=== PATIENT | male | born 1965 | race Caucasian/White ===

== ENCOUNTER 2020-11-06 04:19 | Inpatient (IN) | payer OTHER ==
[2020-11-06] MEDS ORDERED: ACETAMINOPHEN 1000 MG/100 ML VIAL (NON FORMULARY) IVPB ONE (06:02)
[2020-11-06 06:23] LABS: BASO % 0.9 % (0-2.0); EOS % 0.5 % (0-4.5); HEMATOCRIT 42.8 % (35.4-49); HEMOGLOBIN 14.7 GM/dL (11.7-16.9); LYMPH % 26.8 % (8-40); MCH 32.9 pg (25.7-33.7); MCHC 34.3 g/dl (32.0-35.9); MEAN CELL VOLUME 95.8 fl (80-96); MEAN PLT VOLUME 8.8 fl (7.5-11.1); MONO % 7.2 % (3.8-10.2); NEUT % 64.6 % (42.8-82.8); PLATELET COUNT 263 10^3/uL (134-434); RBC 4.47 M/mm3 (4.00-5.60); RDW 14.3 % (11.9-15.9)
[2020-11-06 06:26] LABS: INR 0.87 (0.83-1.09); PROTHROMBIN TIME (PATIENT) 10.6 SEC (9.7-13.0)
[2020-11-06 06:29] LABS: ACTIVATED PTT 26.4 SECONDS (25.2-36.5)
[2020-11-06] MEDS ORDERED: ACETAMINOPHEN INJECTION 100 ML IVPB ONE (06:29)
[2020-11-06] MEDS ORDERED: DIPHTH,PERTUSS(ACELL),TET 0.5 ML DISP.SYRIN IM ONE ×3 (06:47→10:41)
[2020-11-06 08:09] LABS: CALCIUM 8.8 mg/dL (8.5-10.1)
[2020-11-06 08:10] LABS: ALBUMIN 3.6 g/dl (3.4-5.0); BLOOD UREA NITROGEN 14.8 mg/dL (7-18); MAGNESIUM 2.4 mg/dL (1.8-2.4)
[2020-11-06 08:13] LABS: PHOSPHOROUS 4.7 mg/dL (2.5-4.9)
[2020-11-06 08:18] LABS: N-TERMINAL BNP 1577.2 pg/ml (5-125)
[2020-11-06] MEDS ORDERED: PT OWN MED DRAWER 7, Y5N ONE ×2 (08:39→18:40)
[2020-11-06 09:49] LABS: BILIRUBIN,TOTAL 0.5 mg/dL (0.2-1); TOT PROT 7.3 g/dl (6.4-8.2)
[2020-11-06] MEDS ORDERED: DEXTROSE 5%-0.45% SALINE 1,000 ML IV SCH (10:15)
[2020-11-06] MEDS ORDERED: PANTOPRAZOLE 20 MG TABLET PO ONE ×2 (11:24→11:35)
[2020-11-06] MEDS: PANTOPRAZOLE 40 MG TABLET PO SCH (12:02)
[2020-11-06] MEDS ORDERED: ACETAMINOPHEN 325 MG TABLET (FP) PO PRN (13:01)
[2020-11-06] MEDS ORDERED: IBUPROFEN 600 MG TABLET (FP) PO ONE ×2 (13:12→13:22)
[2020-11-06 13:57] LABS: BASO % 0.9 % (0-2.0); EOS % 0.2 % (0-4.5); HEMATOCRIT 43.4 % (35.4-49); LYMPH % 18.1 % (8-40); MCH 32.7 pg (25.7-33.7); MCHC 34.7 g/dl (32.0-35.9); MEAN CELL VOLUME 94.1 fl (80-96); MEAN PLT VOLUME 8.5 fl (7.5-11.1); NEUT % 71.8 % (42.8-82.8); PLATELET COUNT 248 10^3/uL (134-434); RBC 4.61 M/mm3 (4.00-5.60); RDW 14.1 % (11.9-15.9); WHITE BLOOD COUNT 10.4 K/mm3 (4.0-10.0)
[2020-11-06 14:14] LABS: CALCIUM 9.3 mg/dL (8.5-10.1)
[2020-11-06 14:15] LABS: BLOOD UREA NITROGEN 13.8 mg/dL (7-18)
[2020-11-06 14:18] LABS: CREATININE 0.9 mg/dL (0.55-1.3)
[2020-11-06] MEDS: MULTIVITAMINS THER W-MINERALS COMBO TABLET (FP) PO SCH (18:23)
[2020-11-06 22:33] VITALS: BMI 28.1
[2020-11-06] MEDS: CODEINE SO4 30 MG TABLET PO PRN (23:46)
[2020-11-07] MEDS: CODEINE SO4 30 MG TABLET PO PRN (06:21)
[2020-11-07 07:57] LABS: BASO % 0.5 % (0-2.0); EOS % 1.2 % (0-4.5); HEMATOCRIT 41.3 % (35.4-49); HEMOGLOBIN 14.3 GM/dL (11.7-16.9); LYMPH % 20.2 % (8-40); MCH 32.7 pg (25.7-33.7); MCHC 34.7 g/dl (32.0-35.9); MEAN CELL VOLUME 94.4 fl (80-96); MEAN PLT VOLUME 8.6 fl (7.5-11.1); MONO % 10.2 % (3.8-10.2); NEUT % 67.9 % (42.8-82.8); PLATELET COUNT 215 10^3/uL (134-434); RBC 4.37 M/mm3 (4.00-5.60); RDW 14.1 % (11.9-15.9); WHITE BLOOD COUNT 8.3 K/mm3 (4.0-10.0)
[2020-11-07 08:17] LABS: ALBUMIN 3.5 g/dl (3.4-5.0); BLOOD UREA NITROGEN 12.7 mg/dL (7-18); CALCIUM 8.4 mg/dL (8.5-10.1)
[2020-11-07 08:19] LABS: BILIRUBIN,TOTAL 0.8 mg/dL (0.2-1); CREATININE 0.9 mg/dL (0.55-1.3)
[2020-11-07 08:22] LABS: TOT PROT 6.6 g/dl (6.4-8.2)
[2020-11-07] MEDS: MULTIVITAMINS THER W-MINERALS COMBO TABLET (FP) PO SCH (09:37)
[2020-11-07] MEDS: PANTOPRAZOLE 40 MG TABLET PO SCH (09:37)
[2020-11-07] MEDS ORDERED: POTASSIUM CHLORIDE TABS 20 MEQ TABLET.ER (FP) PO ONE (09:45)
[2020-11-07] MEDS: oxyCODONE HCL 5 MG TABLET PO PRN ×2 (11:54→22:20)
[2020-11-07] MEDS: CYANOCOBALAMIN 1,000 MCG TABLET (FP) PO SCH (11:55)
[2020-11-07] MEDS: DEXTROSE 5%-0.45% SALINE 1,000 ML IV SCH (11:56)
[2020-11-07] MEDS: LOSARTAN POTASSIUM 50 MG TABLET PO SCH (11:56)
[2020-11-08] MEDS: oxyCODONE HCL 5 MG TABLET PO PRN ×3 (03:37→17:25)
[2020-11-08] MEDS: DEXTROSE 5%-0.45% SALINE 1,000 ML IV SCH ×2 (05:30→17:27)
[2020-11-08] MEDS: CYANOCOBALAMIN 1,000 MCG TABLET (FP) PO SCH (10:03)
[2020-11-08] MEDS: MULTIVITAMINS THER W-MINERALS COMBO TABLET (FP) PO SCH (10:03)
[2020-11-08] MEDS: LOSARTAN POTASSIUM 50 MG TABLET PO SCH (10:03)
[2020-11-08] MEDS: PANTOPRAZOLE 40 MG TABLET PO SCH (10:03)
[2020-11-09] MEDS: oxyCODONE HCL 5 MG TABLET PO PRN ×2 (00:32→10:43)
[2020-11-09 08:17] LABS: BASO % 0.6 % (0-2.0); EOS % 1.4 % (0-4.5); HEMOGLOBIN 14.8 GM/dL (11.7-16.9); LYMPH % 21.3 % (8-40); MCH 32.8 pg (25.7-33.7); MCHC 34.5 g/dl (32.0-35.9); MEAN CELL VOLUME 94.9 fl (80-96); MONO % 11.5 % (3.8-10.2); NEUT % 65.2 % (42.8-82.8); PLATELET COUNT 222 10^3/uL (134-434); RBC 4.52 M/mm3 (4.00-5.60); RDW 13.9 % (11.9-15.9); WHITE BLOOD COUNT 7.9 K/mm3 (4.0-10.0)
[2020-11-09 08:22] LABS: CALCIUM 8.6 mg/dL (8.5-10.1)
[2020-11-09 08:23] LABS: BLOOD UREA NITROGEN 10.7 mg/dL (7-18)
[2020-11-09 08:26] LABS: CREATININE 0.8 mg/dL (0.55-1.3)
[2020-11-09 09:13] VITALS: BP 139/88; PULSE 92; TEMP 98.6
[2020-11-09] MEDS: DEXTROSE 5%-0.45% SALINE 1,000 ML IV SCH (10:40)
[2020-11-09] MEDS: CYANOCOBALAMIN 1,000 MCG TABLET (FP) PO SCH (10:40)
[2020-11-09] MEDS: PANTOPRAZOLE 40 MG TABLET PO SCH (10:40)
[2020-11-09] MEDS: MULTIVITAMINS THER W-MINERALS COMBO TABLET (FP) PO SCH (10:40)
[2020-11-09] MEDS: LOSARTAN POTASSIUM 50 MG TABLET PO SCH (10:40)
== END 2020-11-09 15:31 | disposition home or self-care (01) | DRG 312 ==
LOC: JER 04:19 → JERBED 10:15 → J4W 20:16
PROVIDERS: ADMIT Internal Medicine; ATTEND Internal Medicine
PROC: 0HQ1XZZ Repair Face Skin, External Approach (ICD-10-PCS; principal; 2020-11-06)
DX: R55 Syncope and collapse (principal); S06.0X9A Concussion with loss of consciousness of unspecified duration, initial encounter; M62.82 Rhabdomyolysis; N17.9 Acute kidney failure, unspecified; S01.81XA Laceration without foreign body of other part of head, initial encounter; W17.89XA Other fall from one level to another, initial encounter; Y93.89 Activity, other specified; Y92.000 Kitchen of unspecified non-institutional (private) residence as the place of occurrence of the external cause; Y99.8 Other external cause status; E87.5 Hyperkalemia; R94.31 Abnormal electrocardiogram [ECG] [EKG]; K76.0 Fatty (change of) liver, not elsewhere classified; S20.219A Contusion of unspecified front wall of thorax, initial encounter; R79.89 Other specified abnormal findings of blood chemistry; R16.0 Hepatomegaly, not elsewhere classified; F10.10 Alcohol abuse, uncomplicated; R60.0 Localized edema
CPT/HCPCS: 36415; 70450-TC; 70486-TC; 71045-TC-FY; 71275-TC; 72125-TC; 74174-TC; 80048; 80053; 82550; 82553; 82607; 83735; 83880; 84100; 84484; 85025; 85610; 85730; 90715; 93005; 93010; 93306-TC; 93880-TC; 94010; 97116-GP; 97161-GP; 99285-25; C9803; J0131; Q9967; U0003; U0005

== ENCOUNTER 2022-10-09 07:11 | Inpatient (IN) | payer OTHER ==
[2022-10-09] MEDS ORDERED: NITROGLYCERIN SUBLINGUAL 1/150 0.4 MG TAB SL ONE (07:52)
[2022-10-09] MEDS ORDERED: NITROGLYCERIN SUBLINGUAL 1/150 0.4 MG TAB ONE (07:57)
[2022-10-09 08:07] LABS: BASO % 1.2 % (0-2.0); EOS % 0.9 % (0-4.5); HEMOGLOBIN 14.2 GM/dL (11.7-16.9); MCH 32.1 pg (25.7-33.7); MCHC 34.5 g/dl (32.0-35.9); MEAN CELL VOLUME 92.9 fl (80-96); MEAN PLT VOLUME 8.4 fl (7.5-11.1); MONO % 7.4 % (3.8-10.2); NEUT % 70.5 % (42.8-82.8); PLATELET COUNT 243 10^3/uL (134-434); RBC 4.41 M/mm3 (4.00-5.60); RDW 14.8 % (11.9-15.9); WHITE BLOOD COUNT 9.4 K/mm3 (4.0-10.0)
[2022-10-09 08:10] LABS: INR 1.1 (0.83-1.09); PROTHROMBIN TIME (PATIENT) 12.7 SEC (9.7-13.0)
[2022-10-09 08:12] LABS: ACTIVATED PTT 31.2 SECONDS (25.2-36.5); VENOUS BASE EXCESS 0.9 mmol/L (-2-2); VENOUS O2 SATURATION 75.2 % (70-80); VENOUS PCO2 38.9 mmHg (38-52); VENOUS PH 7.428 (7.310-7.410)
[2022-10-09 08:38] LABS: LACTIC ACID 2.3 mmol/L (0.4-2.0)
[2022-10-09 08:39] LABS: POTASSIUM 3.7 mmol/L (3.5-5.1)
[2022-10-09 08:41] LABS: CALCIUM 8.6 mg/dL (8.5-10.1); MAGNESIUM 1.8 mg/dL (1.8-2.4)
[2022-10-09 08:42] LABS: ALBUMIN 3.8 g/dl (3.4-5.0); BLOOD UREA NITROGEN 9.3 mg/dL (7-18)
[2022-10-09 08:44] LABS: PHOSPHOROUS 3.6 mg/dL (2.5-4.9)
[2022-10-09 08:46] LABS: BILIRUBIN,TOTAL 0.5 mg/dL (0.2-1); TOT PROT 7.3 g/dl (6.4-8.2)
[2022-10-09 08:49] LABS: N-TERMINAL BNP 3672.6 pg/ml (5-125)
[2022-10-09] MEDS ORDERED: NITROGLYCERIN 2% OINTMENT - 1GM PACKET TD ONE ×2 (08:55→09:19)
[2022-10-09] MEDS ORDERED: ACETAMINOPHEN 1000 MG/100 ML BAG IVPB ONE (08:55)
[2022-10-09] MEDS ORDERED: ASPIRIN 81 MG CHEWABLE TABLETS PO ONE (08:56)
[2022-10-09] MEDS ORDERED: ACETAMINOPHEN INJECTION 100 ML IVPB ONE (08:56)
[2022-10-09] MEDS ORDERED: ASPIRIN 81 MG CHEWABLE TABLETS ONE (09:14)
[2022-10-09] MEDS ORDERED: LISINOPRIL 10 MG TABLET PO ONE (09:52)
[2022-10-09] MEDS ORDERED: HEPARIN NA (PORCINE) 5,000 UNITS/ML 1ML VIAL IVPUSH ONE (09:54)
[2022-10-09] MEDS ORDERED: HEPARIN NA (PORCINE) 5,000 UNITS/ML 1ML VIAL IVPUSH PRN ×2 (09:56)
[2022-10-09] MEDS ORDERED: HEPARIN INFUSION - 25,000 UNITS/500 ML INFUS.BAG IVPB SCH (10:00)
[2022-10-09] MEDS ORDERED: HEPARIN INFUSION - 25,000 UNITS/500 ML INFUS.BAG IVPB ONE (10:10)
[2022-10-09] MEDS ORDERED: LISINOPRIL 10 MG TABLET ONE (10:10)
[2022-10-09] MEDS ORDERED: METOCLOPRAMIDE HCL INJECTION 10 MG/2 ML VIAL ONE (10:29)
[2022-10-09 12:15] LABS: URINE APPEARANCE CLEAR; URINE BILIRUBIN NEGATIVE (NEGATIVE); URINE COLOR YELLOW; URINE GLUCOSE (UA) NEGATIVE (NEGATIVE); URINE KETONE NEGATIVE (NEGATIVE); URINE LEUK ESTERASE NEGATIVE (NEGATIVE); URINE NITRITE NEGATIVE (NEGATIVE); URINE PROTEIN NEGATIVE (NEGATIVE); URINE UROBILINOGEN 0.2 mg/dL (0.2-1.0)
[2022-10-09] MEDS ORDERED: MAGNESIUM SULF 50% (8.12 MEQ/2 ML-1 GM VIAL) IVPB ONE (14:19)
[2022-10-09] MEDS ORDERED: FUROSEMIDE 40 MG/4 ML INJECTABLE VIAL IVPUSH ONE (14:22)
[2022-10-09] MEDS ORDERED: MAGNESIUM 1GM/D5W - 1 GM/100 ML IVPB IVPB ONE (14:24)
[2022-10-09] MEDS ORDERED: NITROGLYCERIN SUBLINGUAL 1/150 0.4 MG TAB SL PRN (14:26)
[2022-10-09] MEDS ORDERED: FUROSEMIDE 40 MG/4 ML INJECTABLE VIAL ONE (14:28)
[2022-10-09] MEDS ORDERED: ASPIRIN COATED 81 MG TABLET.EC PO SCH (14:30)
[2022-10-09 16:31] LABS: INR 1.1 (0.83-1.09); PROTHROMBIN TIME (PATIENT) 12.7 SEC (9.7-13.0)
[2022-10-09 16:34] LABS: ACTIVATED PTT 42.4 SECONDS (25.2-36.5)
[2022-10-09] MEDS ORDERED: HEPARIN NA (PORCINE) 5,000 UNITS/ML 1ML VIAL ONE (16:48)
[2022-10-09] MEDS ORDERED: ATORVASTATIN CA 80 MG TABLET (FP) PO ONE (22:27)
[2022-10-09] MEDS: HEPARIN NA (PORCINE) 5,000 UNITS/ML 1ML VIAL SQ SCH (22:53)
[2022-10-09 23:14] VITALS: BMI 27.3
[2022-10-09] MEDS: METOPROLOL TARTRATE 25 MG TABLET (FP) PO SCH (23:27)
[2022-10-10] MEDS ORDERED: traZODone HCL 50 MG TABLET (FP) PO ONE (01:32)
[2022-10-10] MEDS: HEPARIN NA (PORCINE) 5,000 UNITS/ML 1ML VIAL SQ SCH ×3 (05:26→21:17)
[2022-10-10 08:22] LABS: BASO % 1.2 % (0-2.0); HEMATOCRIT 39.7 % (35.4-49); HEMOGLOBIN 13.5 GM/dL (11.7-16.9); LYMPH % 30.1 % (8-40); MCH 32.2 pg (25.7-33.7); MEAN CELL VOLUME 94.6 fl (80-96); MONO % 8.6 % (3.8-10.2); NEUT % 58.1 % (42.8-82.8); PLATELET COUNT 221 10^3/uL (134-434); RDW 14.8 % (11.9-15.9); WHITE BLOOD COUNT 5.8 K/mm3 (4.0-10.0)
[2022-10-10 08:32] LABS: CALCIUM 8.8 mg/dL (8.5-10.1)
[2022-10-10 08:33] LABS: ALBUMIN 3.7 g/dl (3.4-5.0)
[2022-10-10 08:35] LABS: CREATININE 0.8 mg/dL (0.55-1.3)
[2022-10-10 08:37] LABS: BILIRUBIN,TOTAL 1.2 mg/dL (0.2-1)
[2022-10-10 08:41] LABS: N-TERMINAL BNP 1158.7 pg/ml (5-125)
[2022-10-10] MEDS: SERTRALINE HCL 50 MG TABLET (FP) PO SCH (09:09)
[2022-10-10] MEDS: METOPROLOL TARTRATE 25 MG TABLET (FP) PO SCH ×2 (09:09→21:16)
[2022-10-10] MEDS: ASPIRIN COATED 81 MG TABLET.EC PO SCH (14:40)
[2022-10-10] MEDS: ATORVASTATIN CA 80 MG TABLET (FP) PO SCH (21:16)
[2022-10-10] MEDS: traZODone HCL 50 MG TABLET (FP) PO SCH (21:16)
[2022-10-11] MEDS: HEPARIN NA (PORCINE) 5,000 UNITS/ML 1ML VIAL SQ SCH ×3 (05:57→21:52)
[2022-10-11] MEDS: METOPROLOL TARTRATE 25 MG TABLET (FP) PO SCH ×2 (09:14→21:53)
[2022-10-11] MEDS: SERTRALINE HCL 50 MG TABLET (FP) PO SCH (09:14)
[2022-10-11] MEDS: ASPIRIN COATED 81 MG TABLET.EC PO SCH (09:14)
[2022-10-11] MEDS ORDERED: CLOPIDOGREL BISULFATE 75 MG TABLET (FP) PO ONE (14:10)
[2022-10-11] MEDS: SACUBITRIL/VALSARTAN 24 MG-26 MG TABLET PO SCH ×2 (14:25→21:52)
[2022-10-11 15:02] LABS: POTASSIUM 4.4 mmol/L (3.5-5.1)
[2022-10-11 15:05] LABS: CALCIUM 8.8 mg/dL (8.5-10.1)
[2022-10-11 15:06] LABS: ALBUMIN 3.8 g/dl (3.4-5.0); BLOOD UREA NITROGEN 16.6 mg/dL (7-18); MAGNESIUM 2.1 mg/dL (1.8-2.4)
[2022-10-11 15:09] LABS: PHOSPHOROUS 3.8 mg/dL (2.5-4.9)
[2022-10-11 15:11] LABS: BILIRUBIN,TOTAL 0.8 mg/dL (0.2-1)
[2022-10-11] MEDS: traZODone HCL 50 MG TABLET (FP) PO SCH (21:52)
[2022-10-11] MEDS: ATORVASTATIN CA 80 MG TABLET (FP) PO SCH (21:52)
[2022-10-12] MEDS: HEPARIN NA (PORCINE) 5,000 UNITS/ML 1ML VIAL SQ SCH ×3 (06:15→21:46)
[2022-10-12] MEDS: ASPIRIN COATED 81 MG TABLET.EC PO SCH (10:00)
[2022-10-12] MEDS: SACUBITRIL/VALSARTAN 24 MG-26 MG TABLET PO SCH ×2 (10:00→21:45)
[2022-10-12] MEDS: SERTRALINE HCL 50 MG TABLET (FP) PO SCH (10:00)
[2022-10-12] MEDS: METOPROLOL TARTRATE 25 MG TABLET (FP) PO SCH ×2 (10:00→21:46)
[2022-10-12] MEDS: CLOPIDOGREL BISULFATE 75 MG TABLET (FP) PO SCH (10:01)
[2022-10-12] MEDS: traZODone HCL 50 MG TABLET (FP) PO SCH (21:45)
[2022-10-12] MEDS: ATORVASTATIN CA 80 MG TABLET (FP) PO SCH (21:45)
[2022-10-13] MEDS: HEPARIN NA (PORCINE) 5,000 UNITS/ML 1ML VIAL SQ SCH ×2 (06:06→15:14)
[2022-10-13] MEDS: ASPIRIN COATED 81 MG TABLET.EC PO SCH (10:47)
[2022-10-13] MEDS: CLOPIDOGREL BISULFATE 75 MG TABLET (FP) PO SCH (10:47)
[2022-10-13] MEDS: SERTRALINE HCL 50 MG TABLET (FP) PO SCH (10:47)
[2022-10-13] MEDS: SACUBITRIL/VALSARTAN 24 MG-26 MG TABLET PO SCH (10:48)
[2022-10-13] MEDS: METOPROLOL TARTRATE 25 MG TABLET (FP) PO SCH (10:48)
[2022-10-13 19:06] VITALS: RESP 18; TEMP 98.8
[2022-10-13 19:35] VITALS: BP 109/80; PULSE 81
== END 2022-10-13 19:59 | disposition short-term general hospital (02) | DRG 292 ==
LOC: JER 07:11 → JERBED 11:52 → J4S 22:00
PROVIDERS: ADMIT Internal Medicine; ATTEND Internal Medicine
DX: I50.21 Acute systolic (congestive) heart failure (principal); E87.20 Acidosis, unspecified; I24.8 Other forms of acute ischemic heart disease; J98.11 Atelectasis; E66.9 Obesity, unspecified; Z68.27 Body mass index [BMI] 27.0-27.9, adult; F10.10 Alcohol abuse, uncomplicated; F41.8 Other specified anxiety disorders; G47.00 Insomnia, unspecified; E83.42 Hypomagnesemia; R77.8 Other specified abnormalities of plasma proteins; R79.89 Other specified abnormal findings of blood chemistry; I25.10 Atherosclerotic heart disease of native coronary artery without angina pectoris; R91.1 Solitary pulmonary nodule; M62.81 Muscle weakness (generalized); R55 Syncope and collapse; K76.0 Fatty (change of) liver, not elsewhere classified; R09.02 Hypoxemia
CPT/HCPCS: 0241U-QW; 36415; 71045-TC-FY; 71275-TC; 76604; 80053; 80061; 81003; 82803; 83036; 83605; 83735; 83880; 84100; 84443; 84484; 85025; 85610; 85730; 87040; 87086; 93005; 93010; 93306-TC; 93308; 97116-GP; 97161-GP; 99285-25; J1644; Q9967

== ENCOUNTER 2023-10-15 04:22 | Emergency (ER) | payer BC ==
[2023-10-15 04:29] VITALS: TEMP 98.4; BMI 25.1
[2023-10-15] MEDS ORDERED: ACETAMINOPHEN 325 MG TABLET (FP) ONE (04:46)
[2023-10-15] MEDS: ACETAMINOPHEN 325 MG TABLET (FP) PO ONE (04:47)
[2023-10-15 06:32] LABS: HEMOGLOBIN 13.3 GM/dL (11.7-16.9); MCH 30.8 pg (25.7-33.7); MCHC 34.1 g/dl (32.0-35.9); MEAN CELL VOLUME 90.4 fl (80-96); PLATELET COUNT 223 10^3/uL (134-434); RBC 4.32 M/mm3 (4.00-5.60); RDW 16.3 % (11.9-15.9); WHITE BLOOD COUNT 11.9 K/mm3 (4.0-10.0)
[2023-10-15 06:41] LABS: POTASSIUM 4.2 mmol/L (3.5-5.1)
[2023-10-15 06:43] LABS: ALBUMIN 4.3 g/dl (3.4-5.0); BLOOD UREA NITROGEN 18.9 mg/dL (7-18); CALCIUM 8.7 mg/dL (8.5-10.1)
[2023-10-15 06:47] LABS: CREATININE 1.1 mg/dL (0.55-1.3)
[2023-10-15 06:48] LABS: BILIRUBIN,TOTAL 0.4 mg/dL (0.2-1); TOT PROT 7.5 g/dl (6.4-8.2)
[2023-10-15 07:12] LABS: INR 0.99 (0.83-1.09); PROTHROMBIN TIME (PATIENT) 11.4 SEC (9.7-13.0)
[2023-10-15] MEDS ORDERED: KETOROLAC TROMETHAMINE 15 MG/ML VIAL ONE (07:34)
[2023-10-15] MEDS ORDERED: morphine SULFATE 4 MG/ML VIAL ONE (07:34)
[2023-10-15] MEDS: morphine CARPU-JECT 4 MG/1 ML DISP.SYRIN IVPUSH ONE (07:45)
[2023-10-15] MEDS: KETOROLAC TROMETHAMINE 15 MG/ML VIAL IVPUSH ONE (07:45)
[2023-10-15 10:21] VITALS: BP 108/62; PULSE 66; RESP 18
== END 2023-10-15 10:28 | disposition home or self-care (01) ==
LOC: JER 04:22
PROC: 3E0333Z Introduction of Anti-inflammatory into Peripheral Vein, Percutaneous Approach (ICD-10-PCS; principal; 2023-10-15)
PROC: 3E033NZ Introduction of Analgesics, Hypnotics, Sedatives into Peripheral Vein, Percutaneous Approach (ICD-10-PCS; 2023-10-15)
DX: S42.302A Unspecified fracture of shaft of humerus, left arm, initial encounter for closed fracture (principal); W01.0XXA Fall on same level from slipping, tripping and stumbling without subsequent striking against object, initial encounter
CPT/HCPCS: 36415; 71046-TC-FY; 71101-TC-LT-FY; 73030-TC-LT-FY; 73060-TC-LT-FY; 73200-TC-RT; 80053; 85027; 85610; 86850; 86900; 86901; 93005; 93010; 99285-25